=== PATIENT | female | born 1960 | race Caucasian/White ===

== ENCOUNTER → 2021-02-13 | Outpatient (CLI) | payer OTHER | END | disposition home or self-care (01) | LOC: CFH 07:42 | PROVIDERS: ATTEND Internal Medicine Cardiovascular Disease | DX: I08.8 Other rheumatic multiple valve diseases (principal); I77.810 Thoracic aortic ectasia; I10 Essential (primary) hypertension | CPT/HCPCS: 93306; 93356 ==